=== PATIENT | male | born 1955 ===

== ENCOUNTER → 2019-11-18 | Outpatient (CLI) | payer OTHER | END | disposition home or self-care (01) | LOC: MRI 07:12 | PROVIDERS: ATTEND Orthopaedic Surgery Adult Reconstructive Orthopaedic Surgery | DX: M16.10 Unilateral primary osteoarthritis, unspecified hip (principal); M54.16 Radiculopathy, lumbar region | CPT/HCPCS: 72148 ==

== ENCOUNTER 2020-02-01 08:49 | Outpatient (CLI) | payer OTHER | END 2020-02-01 08:57 | disposition home or self-care (01) | LOC: SONOGRAMA 08:49 | PROVIDERS: ATTEND Internal Medicine Gastroenterology | DX: R16.0 Hepatomegaly, not elsewhere classified (principal) ==

== ENCOUNTER → 2021-03-16 06:28 | Outpatient (CLI) | payer OTHER | END | disposition home or self-care (01) | LOC: MRI 06:28 | PROVIDERS: ATTEND Orthopaedic Surgery Adult Reconstructive Orthopaedic Surgery | DX: M51.37 Other intervertebral disc degeneration, lumbosacral region (principal); M54.5 Low back pain; M25.561 Pain in right knee | CPT/HCPCS: 72148; 73721 ==

== ENCOUNTER → 2021-05-01 07:55 | Outpatient (CLI) | payer OTHER | END | disposition home or self-care (01) | LOC: LAB 07:55 | PROVIDERS: ATTEND Orthopaedic Surgery Orthopaedic Surgery of the Spine | DX: M43.07 Spondylolysis, lumbosacral region (principal); M50.322 Other cervical disc degeneration at C5-C6 level; M54.16 Radiculopathy, lumbar region ==

== ENCOUNTER 2023-04-14 10:43 | Outpatient (CLI) | payer OTHER | END 2023-04-14 15:51 | disposition home or self-care (01) | LOC: RAD 10:43 | DX: J45.909 Unspecified asthma, uncomplicated (principal) ==

== ENCOUNTER → 2024-10-18 | Outpatient (CLI) | payer OTHER | END | disposition home or self-care (01) | LOC: TOM 07:54 | PROVIDERS: ATTEND Internal Medicine Nephrology | DX: N20.1 Calculus of ureter (principal) ==